=== PATIENT | male | born 1970 | race Two or more races ===

== ENCOUNTER 2017-12-23 18:17 | Emergency (ER) | payer OTHER ==
[~2017-12-23] VITALS: Ht 175.3 cm; Wt 78.5 kg
[~2017-12-23 18:17] MED LIST: KETO10TA2 PO; ORPH100T PO
== END 2017-12-23 19:20 | disposition home or self-care (01) ==
LOC: ER 18:17
DX: N50.82 Scrotal pain (principal)

== ENCOUNTER 2019-06-12 18:24 | Emergency (ER) | payer OTHER ==
[~2019-06-12] VITALS: Ht 175.3 cm; Wt 78.0 kg
== END 2019-06-12 20:59 | disposition home or self-care (01) ==
LOC: ER 18:24
DX: J06.9 Acute upper respiratory infection, unspecified (principal)

== ENCOUNTER 2021-09-16 19:41 | Emergency (ER) | payer OTHER ==
[~2021-09-16] VITALS: Ht 175.3 cm; Wt 84.4 kg
[2021-09-16] MEDS ORDERED: SINUS RINSE ST1 EACH NASAL (22:59)
[2021-09-16] MEDS ORDERED: FLONASE ALLERG9.9 ML NASAL (22:59)
[2021-09-16] MEDS ORDERED: CLARITIN5 MG PO (23:00)
== END 2021-09-16 23:16 | disposition home or self-care (01) ==
LOC: ER 19:41
DX: R53.83 Other fatigue (principal); U09.9 Post COVID-19 condition, unspecified; Z88.8 Allergy status to other drugs, medicaments and biological substances

== ENCOUNTER 2024-03-20 19:06 | Emergency (ER) | payer OTHER ==
[~2024-03-20] VITALS: Ht 172.7 cm; Wt 86.2 kg
[~2024-03-20 19:06] MED LIST changes: +CLARITIN5 MG PO; +FLONASE ALLERG9.9 ML NASAL; +SINUS RINSE ST1 EACH NASAL
[2024-03-20] MEDS ORDERED: ACETAMINOPHEN 500 MG GEL..CAP PO STA (21:26)
[2024-03-20] MEDS ORDERED: GUAIFENESIN/DEXTROMETHORPHAN 10ML BLIST.PACK PO STA (21:26)
[2024-03-20 23:40] LABS: HEMATOCRIT 43.6 % (39.0-48.0); HEMOGLOBIN 15.4 g/dL (13-16.00); MEAN CELL VOLUME 86.3 fL (80.0-100.00); MEAN CORPUSCULAR HEMOGLOBIN 30.4 pg (27.00-32.0); MEAN CORPUSCULAR HGB CONC 35.3 g/dl (32.0-36.0); PLATELET COUNT 159 K/uL (150-450); RED BLOOD COUNT 5.05 M/uL (4.00-6.00); RED CELL DISTRIBUTION WIDTH 13.4 % (11.5-14.5)
[2024-03-20 23:42] LABS: ALBUMIN 3.3 gm/dL (3.4-5.0); BILIRUBIN TOTAL 0.66 mg/dL (0.3-1.2); CALCIUM 8.5 mg/dL (8.5-10.1); CREATININE SERUM 1.1 mg/dL (0.70-1.30); GFR 70.57; GLOBULINA 3.9 G/DL (2.4-3.5); POTASSIUM 4.04 mEq/L (3.5-5.1); TOTAL PROTEIN 7.2 gm/dL (6.4-8.2)
[2024-03-21] MEDS ORDERED: SINGULAIR10 MG PO (00:08)
[2024-03-21] MEDS ORDERED: ZYRTEC10 MG PO (00:08)
[2024-03-21] MEDS ORDERED: MUCINEX DM ER1 EACH PO (00:08)
== END 2024-03-21 00:41 | disposition home or self-care (01) ==
LOC: ER 19:09
PROVIDERS: General Practice
DX: J06.9 Acute upper respiratory infection, unspecified (principal); Z88.8 Allergy status to other drugs, medicaments and biological substances; Z20.822 Contact with and (suspected) exposure to COVID-19

== ENCOUNTER → 2024-10-13 | Emergency (ER) | payer OTHER ==
[~2024-10-13] VITALS: Ht 175.3 cm; Wt 83.9 kg
[~2024-10-13] MED LIST changes: +KETOROLAC TROMETHAMINE 60 MG VIAL IM ONE; +MUCINEX DM ER1 EACH PO; +SINGULAIR10 MG PO; +ZYRTEC10 MG PO
== END | disposition home or self-care (01) ==
LOC: ER 10:07
DX: K12.0 Recurrent oral aphthae (principal); S60.041A Contusion of right ring finger without damage to nail, initial encounter; Y93.67 Activity, basketball; Y93.89 Activity, other specified; Y92.89 Other specified places as the place of occurrence of the external cause; Z88.0 Allergy status to penicillin